=== PATIENT | female | born 1980 | race Caucasian/White ===

== ENCOUNTER 2020-10-01 22:01 | Emergency (ER) | payer MEDICAID ==
[~2020-10-01] VITALS: Ht 165.1 cm; Wt 105.0 kg
[2020-10-01 22:15] VITALS: BP 180/100
[2020-10-01] MEDS ORDERED: ALBU6.7H9 INH (23:11)
== END 2020-10-01 23:40 | disposition home or self-care (01) ==
LOC: ER 22:02
DX: J06.9 Acute upper respiratory infection, unspecified (principal); Z20.822 Contact with and (suspected) exposure to COVID-19; R05 Cough; R09.89 Other specified symptoms and signs involving the circulatory and respiratory systems
CPT/HCPCS: 36415; 87635; 99283

== ENCOUNTER 2020-10-26 21:11 | Emergency (ER) | payer MEDICAID ==
[~2020-10-26] VITALS: Ht 172.7 cm; Wt 104.3 kg
[~2020-10-26 21:11] MED LIST: ALBU6.7H9 INH
[2020-10-26 21:16] VITALS: BP 161/75
[2020-10-26] MEDS ORDERED: methylnaltrexone br 12mg/0.6ml inj***SubQ only SQ ONE (21:40)
[2020-10-26] MEDS ORDERED: MAGN100T6 PO (21:43)
[2020-10-26] MEDS ORDERED: DOCU240C26 PO (21:43)
== END 2020-10-26 22:16 | disposition home or self-care (01) ==
LOC: ER 21:12
DX: K59.03 Drug induced constipation (principal); Z79.899 Other long term (current) drug therapy
CPT/HCPCS: 96372; 99283; J2212

== ENCOUNTER 2022-09-19 19:21 | Emergency (ER) | payer MEDICAID ==
[~2022-09-19] VITALS: Ht 172.7 cm; Wt 104.5 kg
[~2022-09-19 19:21] MED LIST changes: +ALBU6.7H14 INH; -ALBU6.7H9 INH; +DOCU240C26 PO; +MAGN100T6 PO
[2022-09-19 19:37] VITALS: BP 139/69
--- NOTE | 2022-09-20 00:10 | NUR ---
CHAPERONED DR STOKES FOR EXAM
[2022-09-20] MEDS ORDERED: DOXYCYCLINE 100MG CAPSULE PO STA (00:12)
[2022-09-20] MEDS ORDERED: HYDR-3965 PO (00:15)
[2022-09-20] MEDS ORDERED: HYDROcodone/acetaminophen 5mg/325mg tablet PO ONE (00:15)
[2022-09-20] MEDS ORDERED: DOXY100T67 PO (00:15)
== END 2022-09-20 00:29 | disposition home or self-care (01) ==
LOC: ER 19:22
DX: T81.89XA Other complications of procedures, not elsewhere classified, initial encounter (principal); D09.9 Carcinoma in situ, unspecified; Z79.899 Other long term (current) drug therapy
CPT/HCPCS: 99283

== ENCOUNTER 2024-02-04 05:34 | Emergency (ER) | payer MEDICAID ==
[~2024-02-04] VITALS: Ht 172.7 cm; Wt 101.4 kg
[2024-02-04 05:37] VITALS: BP 132/79; PULSE 79; RESP 16; TEMP 97.8; O2SAT 98
[2024-02-04] MEDS: Cipro HC otic suspension 10ML bottle RIGHT EAR ONE (06:51)
== END 2024-02-04 06:57 | disposition home or self-care (01) ==
LOC: ER 05:35
DX: H60.91 Unspecified otitis externa, right ear (principal); Z79.899 Other long term (current) drug therapy
CPT/HCPCS: 99283

== ENCOUNTER 2024-03-31 09:23 | Emergency (ER) | payer MEDICAID ==
[~2024-03-31] VITALS: Ht 172.7 cm; Wt 103.0 kg
[2024-03-31 09:31] VITALS: BP 150/75; PULSE 84; TEMP 97.6; O2SAT 97
[2024-03-31] MEDS ORDERED: AMOX500C2 PO (10:30)
[2024-03-31] MEDS: amoxicillin 250mg capsule PO ONE (11:00)
[2024-03-31 11:01] VITALS: RESP 18
== END 2024-03-31 11:09 | disposition home or self-care (01) ==
LOC: ER 09:23
DX: H60.91 Unspecified otitis externa, right ear (principal); H66.91 Otitis media, unspecified, right ear; Z79.2 Long term (current) use of antibiotics; Z79.899 Other long term (current) drug therapy
CPT/HCPCS: 99283

== ENCOUNTER 2024-05-20 12:20 | Emergency (ER) | payer MEDICAID ==
[~2024-05-20] VITALS: Ht 175.3 cm; Wt 102.3 kg
[2024-05-20 12:22] VITALS: BP 146/78; PULSE 69; RESP 16; TEMP 98.8; O2SAT 97
[2024-05-20] MEDS ORDERED: CEPH-585 PO (13:15)
[2024-05-20] MEDS ORDERED: NEOM10SO7 RIGHT EAR (13:15)
== END 2024-05-20 13:22 | disposition home or self-care (01) ==
LOC: ER 12:21
DX: H60.8X1 Other otitis externa, right ear (principal); Z79.899 Other long term (current) drug therapy
CPT/HCPCS: 87070; 87077; 87186; 99283

== ENCOUNTER 2025-02-05 09:54 | Emergency (ER) | payer MEDICAID ==
[~2025-02-05] VITALS: Ht 172.7 cm; Wt 100.6 kg
[~2025-02-05 09:54] MED LIST changes: +NEOM10SO7 RIGHT EAR
[2025-02-05 10:07] VITALS: TEMP 98.7; O2SAT 99
--- NOTE | 2025-02-05 10:20 | Physician Documentation ---
History of Present Illness ~ Chief Complaint: Leg Pain Stated Complaint: R ANKLE SWELLING Time Seen by MD: 10:07 HPI This is a 44-year-old diabetic smoker who denies any recent travel. She denies being on estrogen or control pills. She denies history of blood clot. She presents today due to a week history of swelling to the right lower extremity. Denies chills or fever, chest pain or shortness of breath, any other symptoms of illness. Reports that she otherwise feels at her baseline and that her glucoses have been within range recently. Tetanus witin 5 years: Yes (2019) Medication Reconciliation Allergies: Coded Allergies: No Known Allergies (Unverified , 03/31/24) Scheduled Albuterol Sulfate (Proventil Hfa), 2 PUFFS INH Q6H Cephalexin*Monohydrate* (Keflex*), 1 CAP PO Q6H Docusate Calcium (Docusate Calcium), 1 CAP PO DAILY Furosemide* (Lasix*), 1 TAB PO DAILY Magnesium Citrate (Magnesium Citrate), 1 TAB PO HS Neomy Sulf/Polymyx B Sulf/Hc (Cortisporin Otic Solution), 4 DROP RIGHT EAR Q6H Potassium Chloride 8 MEQ* (Slow-K 8 Meq*), 1 CAP PO DAILY Past Medical History Past Medical History: Squamous Cell Past Surgical History: noncontributory Alcohol Use: None Drug Use: none Lives In: Home Review of Systems ROS As stated above in the HPI, otherwise all systems are reviewed and negative. Physical Exam Vital Signs: Temperature: 98.7, Source: Temporal, Heart Rate: 95, Respiratory Rate: 18, BP: 172/115, Pulse Oximetry: 99, Weight: 100.600 Oxygen Flow Rate: 0 Physical Exam General: Alert, no apparent distress. Neck: Full range of motion. Respiratory: Lungs clear, no respiratory distress. Chest: No accessory muscle use. Cardiovascular: Regular rate and rhythm, no murmurs. Gastrointestinal: Soft, nontender, nondistended. Bowels sounds present. Extremities: Normal range of motion, no deformity. Neurologic: Oriented x4. Psychiatric: Normal mood and affect. Skin: Normal color, warm and dry. Pitting edema without erythema RLE. Progress Progress Note [facility] [address] , [place], [place] - [address] VASCULAR Patient: FERNY CANADA Medical Record: [id number] [facility] : 1980, Age: 44 Sex: F Location: ER Patient Status: [facility] ER Service Date/Time: 02/05/251016 Ordering Physician: MAGALIS PHILIPPE NP Exam Name: VENOUS Technologist: Geo CANSECO VENOUS HISTORY: RLE pain and swelling. COMPARISON: None TECHNIQUE: Duplex doppler evaluation of the deep venous system of the lower extr emity from the common femoral veins, superficial femoral vein, great saphenous vein, deep femoral vein, popliteal vein, and calf veins, including color doppler and spectral/pulsed waveform analysis, was performed. FINDINGS: Right: - Common femoral vein: Compressible - Deep femoral vein: Compressible - Femoral vein: Compressible - Popliteal vein: Compressible - Posterior tibial vein: Waveforms present - Peroneal vein: Waveforms present - Other: Nothing Left: - Common femoral vein: Compressible - Other: Nothing IMPRESSION: No right lower extremity deep venous thrombosis. Dictated by:GILBERT MARADIAGA MD Dictation date and time:02/05/251115 Electronically Signed by: GILBERT MARADIAGA MD Date and Time: 02/05/251115 Transcribed: [facility] Transcribed: NO PRIMARY CARE PROVIDER~ cc: MAGALIS PHILIPPE NP; GILBERT MARADIAGA MD ~ Results/Orders Results/Orders Orders - MAGALIS PHILIPPE NP Vl Venous (02/05/25 10:17) Completed Orders - MAGALIS PHILIPPE NP Vl Venous (02/05/25 10:17) Vital Signs 02/05/25 10:07 Temp 98.7 Pulse 95 Resp 18 B/P (MAP) 172/115 Pulse Ox 99 O2 Flow Rate 0 Medical Decision Making Additional Comment 44-year-old smoker with a history of diabetes presented due to concerns for RLE edema. Vascular study negative for DVT, but tech did make note of prominent groin lymph nodes. Will tx with course of furosemide low dose 20 mg daily x 5 and cephalexin. Followup with primary care provider. Return if worse. Departure Time of Disposition: 10:55 Disposition: 01 HOME / SELF CARE / HOMELESS Impression: Primary Impression: Peripheral edema Additional Impression: Cellulitis of leg without foot, right Condition: Stable Discharge Instructions: Peripheral Edema, RICE Therapy for Routine Care of Injuries, [id number] Additional Instructions: Your leg is swollen but no blood clot was found with vascular study. Elevate, ice, rest. This could be due to infection. Take the antibiotics as prescribed. Take the furosemide (water pill) as prescribed See your primary care provider within a week. RETURN IF WORSE. Referrals: NO PRIMARY CARE PROVIDER (PCP) Prescriptions Potassium Chloride 8 MEQ* (Slow-K 8 Meq*) 8 Meq Capsule.sa 1 CAP PO DAILY for 5 Days, #5 CAP Prov: MAGALIS PHILIPPE NP 02/05/25 Furosemide* (Lasix*) 20 Mg Tablet 1 TAB PO DAILY for 5 Days, #5 TAB Prov: MAGALIS PHILIPPE NP 02/05/25 Cephalexin*Monohydrate* (Keflex*) 500 Mg Capsule 1 CAP PO Q6H for 7 Days, #28 CAP Prov: MAGALIS PHILIPPE NP 02/05/25 Education Educated: Patient Educated regarding: diagnosis, treatment, prognosis, need for follow up Signature Scribe Signature: x Attestation: The note accurately reflects work and decisions made by me.Magalis Che NP 02/05/25 10:19 MAGALIS PHILIPPE NP Feb 05, 2025 10:20
[2025-02-05] MEDS ORDERED: FURO-150 PO (10:57)
[2025-02-05] MEDS ORDERED: CEPH-585 PO (10:57)
[2025-02-05] MEDS ORDERED: POTA8CAP20 PO (11:10)
--- NOTE | 2025-02-05 11:18 | VASCULAR REPORT ---
VASC VL VENOUS HISTORY: RLE pain and swelling. COMPARISON: None TECHNIQUE: Duplex doppler evaluation of the deep venous system of the lower extremity from the common femoral veins, superficial femoral vein, great saphenous vein, deep femoral vein, popliteal vein, an d calf veins, including color doppler and spectral/pulsed waveform analysis, was performed. FINDINGS: Right: - Common femoral vein: Compressible - Deep femoral vein: Compressible - Femoral vein: Compressible - Popliteal vein: Compressible - Posterior tibial vein: Waveforms present - Peroneal vein: Waveforms present - Other: Nothing Left: - Common femoral vein: Compressible - Other: Nothing IMPRESSION: No right lower extremity deep venous thrombosis.
[2025-02-05 11:27] VITALS: BP 165/86; PULSE 91; RESP 18
== END 2025-02-05 11:30 | disposition home or self-care (01) ==
LOC: ER 09:55
DX: R60.0 Localized edema (principal); L03.115 Cellulitis of right lower limb; F17.200 Nicotine dependence, unspecified, uncomplicated; E11.9 Type 2 diabetes mellitus without complications; Z79.899 Other long term (current) drug therapy
CPT/HCPCS: 93971; 99284

== ENCOUNTER 2025-04-03 12:52 | Emergency (ER) | payer MEDICAID ==
[~2025-04-03] VITALS: Ht 172.7 cm; Wt 97.0 kg
[2025-04-03 13:20] VITALS: BP 155/100; PULSE 94; RESP 18; TEMP 98.3; O2SAT 96
--- NOTE | 2025-04-03 15:43 | Physician Documentation ---
History of Present Illness ~ Chief Complaint: Eye Pain Stated Complaint: EYE PAIN Time Seen by MD: 15:28 HPI Patient is seen today with complaints of pain and swelling and drainage from her left eye. Patient states that she had a dresser and some drawers fallen top of her a few weeks ago and states one of them hit her left thigh she had some swelling has mostly resolved but still has some residual bruising but states she now has some redness and swelling from her left eye with a little drainage. She has no other concern or complaint at this time. Has a fevers or chills. Medication Reconciliation Allergies: Coded Allergies: No Known Allergies (Unverified , 04/03/25) Scheduled Albuterol Sulfate (Proventil Hfa), 2 PUFFS INH Q6H Docusate Calcium (Docusate Calcium), 1 CAP PO DAILY Magnesium Citrate (Magnesium Citrate), 1 TAB PO HS Neomy Sulf/Polymyx B Sulf/Hc (Cortisporin Otic Solution), 4 DROP RIGHT EAR Q6H Past Medical History Past Medical History: Squamous Cell Past Surgical History: noncontributory Alcohol Use: None Drug Use: none Lives In: Home Review of Systems Constitutional: Denies: chills, fever, weakness Eyes: Denies: pain, blurred vision ENT: Denies: ear pain, nose pain, throat pain, mouth pain Respiratory: Denies: cough, shortness of breath Cardiovascular: Denies: chest pain, palpitations Gastrointestinal: Denies: abdominal pain, nausea, vomiting Genitourinary: Denies: burning, dysuria Female Genitalia: Denies: vaginal discharge, pelvic pain Neurological: Denies: headache, dizziness Musculoskeletal: Denies: pain, swelling Integumentary: Denies: rash, lesions Allergic/Immunologic: Denies: hives, itching Hematologic/Lymphatic: Denies: no symptoms reported Psychiatric: Denies: depression, anxiety Physical Exam Vital Signs: Temperature: 98.3, Source: Oral, Heart Rate: 94, Respiratory Rate: 18, BP: 155/100, Pulse Oximetry: 96, Weight: 97.000 Physical Exam General: Awake and Alert, no acute distress. HEENT: Patient on exam has mild erythema and swelling of the left eyelid consistent with stye or hordeolum. Conjunctiva pink, Sclera clear, Mucus Membranes moist. Neck: Supple without masses and tenderness. Resp: Unlabored. Lungs clear to auscultation bilaterally. Heart: Regular Rate and rhythm, normal S1 and S2 without murmur, rub or gallop. Extremities: No cyanosis,clubbing or edema. Skin: Warm and Dry. Visual Acuity : Eye Location: Bilateral Vision Acuity Degree: 20/100 Correction: Uncorrected Progress Results/Orders Results/Orders Vital Signs 04/03/25 13:20 Temp 98.3 Pulse 94 Resp 18 B/P (MAP) 155/100 Pulse Ox 96 Medical Decision Making Findings Patient is seen today with complaints of pain and swelling and drainage from her left eye. Patient states that she had a dresser and some drawers fallen top of her a few weeks ago and states one of them hit her left thigh she had some swelling has mostly resolved but still has some residual bruising but states she now has some redness and swelling from her left eye with a little drainage. She has no other concern or complaint at this time. Denies a fevers or chills. Patient was instructed to perform warm compress twice a day for 3-5 days. Patient left prior to further instruction. Patient will follow up with primary care or return to ED with any worsening, concerning or changing symptoms. Departure Disposition: 07 LEFT AWOL/ELOPED Impression: Primary Impression: Hordeolum externum (stye) Qualified Codes: H00.016 - Hordeolum externum left eye, unspecified eyelid Condition: Stable Discharge Instructions: Sty Additional Instructions: Patient was instructed to perform warm compress twice a day for 3-5 days. P atient left prior to further instruction. Patient will follow up with primary care or return to ED with any worsening, concerning or changing symptoms. Referrals: NO PRIMARY CARE PROVIDER (PCP) Signature Scribe Signature: No scribe Attestation: No scribe YEYO GLALO PAC Apr 03, 2025 15:43
== END 2025-04-04 09:48 | disposition left against medical advice (07) ==
LOC: ER 12:52
DX: H00.016 Hordeolum externum left eye, unspecified eyelid (principal)
CPT/HCPCS: 99282